=== PATIENT | female | born 1945 | race Caucasian/White ===

== ENCOUNTER 2017-12-14 21:02 | Emergency (ER) | payer MEDICARE, MEDICAID ==
[2017-12-14 21:02] VITALS: BMI 34.9
[2017-12-14] MEDS ORDERED: DiphenhydrAMINE 50 mg/ml Inj IVP STA (21:18)
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
[2017-12-14 21:39] LABS: BASO # 0.1 K/uL (0.0-0.2); BASO % 0.5 % (0.0-2.0); EOS % 0.4 % (0.0-4.0); LYMPH # 2.9 K/uL (1.0-4.3); LYMPH % 26.4 % (20.0-40.0); MEAN CORPUSCULAR HEMOGLOBIN 22.5 pg (27.0-31.0); MEAN CORPUSCULAR HGB CONC 31.6 g/dL (33.0-37.0); MEAN PLATELET VOLUME 8.3 fL (7.2-11.7); MONO # 0.6 K/uL (0.0-0.8); MONO % 5.2 % (0.0-10.0); NEUT # 7.5 K/uL (1.8-7.0); NEUT % 67.5 % (50.0-75.0); RBC 4.94 Mil/uL (3.80-5.20); RED CELL DISTRIBUTION WIDTH 18.1 % (11.5-14.5); WHITE BLOOD COUNT 11.2 K/uL (4.8-10.8)
[2017-12-14 21:41] LABS: HEMOGLOBIN 11.1 g/dL (11.0-16.0)
[2017-12-14 21:52] LABS: ALB/GLOB RATIO 1.1 (1.0-2.1); ALBUMIN 3.9 g/dL (3.5-5.0); ALT/SGPT 39 U/L (9-52); AST/SGOT 33 U/L (14-36); BLOOD UREA NITROGEN 18 mg/dL (7-17); CALCIUM 9.6 mg/dl (8.6-10.4); GFR AFRICAN-AMERICAN > 60; GFR NON-AFRICAN AMERICAN > 60
[2017-12-14] MEDS ORDERED: DiphenhydrAMINE 50 mg/ml Inj ONE (21:55)
[2017-12-14 22:13] VITALS: BP 146/43; PULSE 70; RESP 22
[2017-12-14 22:43] VITALS: O2SAT 93
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
--- NOTE | 2017-12-15 21:23 | CARD ---
APPROVED REPORT EKG Measurement Heart [id number] <Conclusion> Normal sinus rhythm Left ventricular hypertrophy with repolarization abnormality Abnormal ECG
== END 2017-12-14 23:13 | disposition home or self-care (01) ==
LOC: C.ER 21:02
DX: R51 Headache (principal); R42 Dizziness and giddiness
CPT/HCPCS: 70450; 80053; 82948; 85025; 93005; 96374; 96375; 99285; J0780; J1200

== ENCOUNTER 2018-10-28 10:35 | Outpatient (CLI) | payer MEDICARE, MEDICAID | END 2018-10-28 10:36 | disposition home or self-care (01) | LOC: C.DEXAIC 10:36 ==